=== PATIENT | male | born 1950 | race Caucasian/White ===

== ENCOUNTER → 2017-03-05 10:09 | Outpatient (CLI) | payer MEDICARE, OTHER | END | disposition home or self-care (01) | LOC: D.RT 10:09 | DX: J44.9 Chronic obstructive pulmonary disease, unspecified (principal) ==

== ENCOUNTER → 2018-07-24 08:48 | Outpatient (CLI) | payer MEDICARE, OTHER | END | disposition home or self-care (01) | LOC: D.RT 08:48 | DX: J44.9 Chronic obstructive pulmonary disease, unspecified (principal); J45.909 Unspecified asthma, uncomplicated; D80.3 Selective deficiency of immunoglobulin G [IgG] subclasses ==